=== PATIENT | female | born 1990 | race African-American/Black ===

== ENCOUNTER 2017-05-23 00:35 | Emergency (ER) | payer SELFPAY ==
[~2017-05-23] VITALS: Ht 154.9 cm; Wt 52.2 kg
[2017-05-23 00:45] VITALS: BP 125/73
--- NOTE | 2017-05-23 02:07 | NUR ---
INFORMED BY SECURITY ''PT LEFT LONG AGO''
== END 2017-05-23 02:09 | disposition left against medical advice (07) ==
LOC: ER 00:37
DX: R52 Pain, unspecified (principal); Z53.21 Procedure and treatment not carried out due to patient leaving prior to being seen by health care provider
CPT/HCPCS: A4606; Z7610